=== PATIENT | male | born 1950 | race Caucasian/White ===

== ENCOUNTER 2016-12-06 06:51 | Emergency (ER) | payer MEDICARE, OTHER ==
[~2016-12-06] VITALS: Ht 175.3 cm; Wt 75.0 kg
[2016-12-06 07:06] VITALS: BP 130/91; PULSE 85; RESP 18; TEMP 98.3; O2SAT 97
--- NOTE | 2016-12-06 07:07 | PD ---
HPI Chief Complaint: altered mental status Time Seen by Provider: 06:56 Travel History International Travel<30 days: No Contact w/Intl Traveler<30days: No Traveled to known affect area: No History of Present Illness HPI 66-year-old male was brought in by EMS after patient was found unresponsive. EMS was called by patient's friend. Patient was doing heroin with a friend this morning. Patient was found unresponsive. EMS was called. Patient was given Narcan 0.4 mg IV. Patient workup subsequently. Blood sugar and vital signs stable at the scene. Patient was transported to ED for evaluation. Patient denies any headache. Patient denies any chest pain or shortness of breath. Patient denies abdominal pain. Patient denies any focal weakness or numbness of the extremity. Patient denies any back pain. Patient denies any IV drug abuse. Patient denies any alcohol abuse. Patient denies any medical problem. [facility] Past Medical History Inguinal Hernia: Yes (1955) Social History Alcohol Use: Yes (OCC) Tobacco Use: Yes (PIPE) Substance Use: No Allergies-Medications (Allergen,Severity, Reaction): Coded Allergies: No Known Allergies (Unverified , 12/06/16) Reported Meds & Prescriptions Reported Meds & Active Scripts Active No Active Prescriptions or Reported Medications Review of Systems General / Constitutional: No: Fever Eyes: No: Visual changes HENT: No: Headaches Cardiovascular: No: Chest Pain or Discomfort Respiratory: No: Shortness of Breath Gastrointestinal: No: Abdominal Pain Genitourinary: No: Dysuria Musculoskeletal: No: Pain Skin: No Rash Neurologic: No: Weakness Psychiatric: No: Depression Endocrine: No: Polydipsia Hematologic/Lymphatic: No: Easy Bruising Physical Exam Narrative GENERAL: Well-nourished, well-developed patient. SKIN: Focused skin assessment warm/dry. HEAD: Normocephalic. Patient has ecchymosis and soft tissue swelling forehead. EYES: No scleral icterus. No injection or drainage. Pupils 3 mm equal reactive. NECK: Supple, trachea midline. No JVD or lymphadenopathy. CARDIOVASCULAR: Regular rate and rhythm without murmurs, gallops, or rubs. RESPIRATORY: Breath sounds equal bilaterally. No accessory muscle use. GASTROINTESTINAL: Abdomen soft, non-tender, nondistended. MUSCULOSKELETAL: No cyanosis, or edema. BACK: Nontender without obvious deformity. No CVA tenderness. Patient's awake and alert. Patient moves all extremity well. No obvious focal neurological deficit. Data Data Last Documented VS Vital Signs Date Time Temp Pulse Resp B/P Pulse Ox O2 Delivery O2 Flow Rate FiO2 12/06/16 11:11 73 14 97/61 96 Nasal Cannula 3 12/06/16 07:06 98.3 Orders Electrocardiogram (12/06/16 07:01) Complete Blood Count With Diff (12/06/16 07:01) Comprehensive Metabolic Panel (12/06/16 07:01) Creatine Kinase (Cpk) (12/06/16 07:01) Troponin I (12/06/16 07:01) Prothrombin Time / Inr (Pt) (12/06/16 07:01) Act Partial Throm Time (Ptt) (12/06/16 07:01) Urinalysis - C+S If Indicated (12/06/16 07:01) Chest, Single Ap (12/06/16 07:01) Ct Brain W/O Iv Contrast(Rout) (12/06/16 07:01) Iv Access Insert/Monitor (12/06/16 07:01) Ecg Monitoring (12/06/16 07:01) Oximetry (12/06/16 07:01) Drug Screen, Random Urine (12/06/16 07:01) Alcohol (Ethanol) (12/06/16 07:01) Sodium Chlor 0.9% 1000 Ml Inj (Ns 1000 M (12/06/16 07:15) Labs Laboratory Tests Test 12/06/16 07:49 White Blood Count 30.2 TH/MM3 Red Blood Count 5.16 MIL/MM3 Hemoglobin 15.8 GM/DL Hematocrit 47.8 % Mean Corpuscular Volume 92.6 FL Mean Corpuscular Hemoglobin 30.6 PG Mean Corpuscular Hemoglobin 33.1 % Concent Red Cell Distribution Width 14.5 % Platelet Count 316 TH/MM3 Mean Platelet Volume 9.3 FL Neutrophils (%) (Auto) 88.1 % Lymphocytes (%) (Auto) 5.6 % Monocytes (%) (Auto) 5.4 % Eosinophils (%) (Auto) 0.5 % Basophils (%) (Auto) 0.4 % Neutrophils # (Auto) 26.6 TH/MM3 Lymphocytes # (Auto) 1.7 TH/MM3 Monocytes # (Auto) 1.6 TH/MM3 Eosinophils # (Auto) 0.2 TH/MM3 Basophils # (Auto) 0.1 TH/MM3 CBC Comment AUTO DIFF Differential Total Cells 100 Counted Neutrophils % (Manual) 63 % Band Neutrophils % 12 % Lymphocytes % 11 % Monocytes % 12 % Eosinophils % 1 % Basophils % 1 % Neutrophils # (Manual) 22.7 TH/MM3 Differential Comment FINAL DIFF MANUAL Platelet Estimate NORMAL Platelet Morphology Comment NORMAL Red Cell Morphology Comment NORMAL Prothrombin Time 10.5 SEC Prothromb Time International 1.0 RATIO Ratio Activated Partial 24.4 SEC Thromboplast Time Urine Color LIGHT-YELLOW Urine Turbidity HAZY Urine pH 5.0 Urine Specific [place] 1.004 Urine Protein NEG mg/dL Urine Glucose (UA) NEG mg/dL Urine Ketones NEG mg/dL Urine Occult Blood MOD Urine Nitrite NEG Urine Bilirubin NEG Urine Urobilinogen LESS THAN 2.0 MG/DL Urine Leukocyte Esterase NEG Urine RBC 1 /hpf Urine WBC 1 /hpf Urine Bacteria FEW /hpf Urine Hyaline Casts 1 /lpf Microscopic Urinalysis Comment CULT NOT INDICATED Sodium Level 141 MEQ/L Potassium Level 4.9 MEQ/L Chloride Level 103 MEQ/L Carbon Dioxide Level 21.2 MEQ/L Anion Gap 17 MEQ/L Blood Urea Nitrogen 23 MG/DL Creatinine 1.62 MG/DL Estimat Glomerular Filtration 43 ML/MIN Rate Random Glucose 189 MG/DL Calcium Level 9.4 MG/DL Total Bilirubin 0.2 MG/DL Aspartate Amino Transf 27 U/L (AST/SGOT) Alanine Aminotransferase 38 U/L (ALT/SGPT) Alkaline Phosphatase 95 U/L Total Creatine Kinase 152 U/L Troponin I 0.03 NG/ML Total Protein 8.9 GM/DL Albumin 4.8 GM/DL Urine Opiates Screen NEG Urine Barbiturates Screen NEG Urine Amphetamines Screen NEG Urine Benzodiazepines Screen NEG Urine Cocaine Screen POS Urine Cannabinoids Screen NEG Ethyl Alcohol Level LESS THAN 3 MG/DL MDM Medical Decision Making Medical Screen Exam Complete: Yes Emergency Medical Condition: Yes Interpretation(s) Last Impressions Head CT 12/06/16700 Signed Impressions: Service Date/Time: Tuesday, December 06, 2016 07:54 - CONCLUSION: Normal examination. Tristen Cui Jr., MD Chest X-Ray 12/06/16700 Signed Impressions: Service Date/Time: Tuesday, December 06, 2016 07:34 - CONCLUSION: 1. Hyperinflation suggesting COPD. No acute infiltrate or effusion. Tristen Cui Jr., MD 9:05 AM. CBC WBC 30.2. Hemoglobin 15.8 hematocrit 47.8. 88 neutrophil. BUN 23. Creatinine 1.62. UA is negative. Urine drug screen positive for cocaine. Differential Diagnosis Differential diagnosis including drug overdose, electrolyte imbalance, head injury, TIA, CVA, sepsis. Narrative Course 66-year-old male was brought in with possible heroin overdose. Patient was given Narcan IV with good result. Normal saline solution 1 25 cc an hour. 1: 55 PM. Patient woke up and does not remember anything about the event this morning. Patient states that he did not take any drugs. Diagnosis Primary Impression: Drug-induced mood disorder Additional Impression: Renal insufficiency Patient Instructions: General Instructions Additional Instructions: Follow-up with local physician. Return as needed. Med/Other Pt SpecificInfo: No Meds Exist/No RX given Scripts No Active Prescriptions or Reported Meds Disposition: 01 DISCHARGE HOME Condition: Stable Matthew Alexandra MD Dec 06, 2016 07:07 Matthew Alexandra MD Dec 06, 2016 07:07
[2016-12-06] MEDS ORDERED: SODIUM CHLOR 0.9% 1000 ML INJ 1,000 ML IV SCH (07:15)
[2016-12-06 07:54] VITALS: O2SAT 90; O2SAT 98
[2016-12-06 08:13] LABS: AUTOMATED NEUTROPHIL # 26.6 TH/MM3 (1.8-7.7); BASOPHIL # 0.1 TH/MM3 (0-0.2); BASOPHIL % 0.4 % (0.0-2.0); EOSINOPHIL # 0.2 TH/MM3 (0-0.4); EOSINOPHIL % 0.5 % (0.0-4.0); HEMATOCRIT 47.8 % (39.0-51.0); LYMPH % 5.6 % (9.0-44.0); LYMPHOCYTE # 1.7 TH/MM3 (1.0-4.8); MEAN CELL VOLUME 92.6 FL (80.0-100.0); MEAN CORPUSCULAR HEMOGLOBIN 30.6 PG (27.0-34.0); MEAN CORPUSCULAR HGB CONC 33.1 % (32.0-36.0); MONO % 5.4 % (0.0-8.0); NEUT % 88.1 % (16.0-70.0); PLATELET COUNT 316 TH/MM3 (150-450); RED BLOOD COUNT 5.16 MIL/MM3 (4.50-5.90); RED CELL DISTRIBUTION WIDTH 14.5 % (11.6-17.2); WHITE BLOOD COUNT 30.2 TH/MM3 (4.0-11.0)
--- NOTE | 2016-12-06 08:14 | RADRPT ---
EXAM DATE/TIME: 12/06/2016 07:34 [facility] COMPARISON: No previous studies available for comparison. INDICATIONS : Patient is short of breath. MEDICAL HISTORY : None. SURGICAL HISTORY : None. ENCOUNTER: Initial ACUITY: 1 day PAIN SCORE: 0/10 LOCATION: Bilateral chest FINDINGS: A single view of the chest demonstrates the lungs to be symmetrically aerated without evidence of mas s, infiltrate or effusion. The lungs are hyperinflated bilaterally. The cardiomediastinal contours ar e unremarkable. Osseous structures are intact. CONCLUSION: 1. Hyperinflation suggesting COPD. No acute infiltrate or effusion. Tristen Cui Jr., MD on December 06, 2016 at 8:12 Board Certified Radiologist. This report was verified electronically.
[2016-12-06 08:16] LABS: HEMO FLAGS AUTO DIFF
--- NOTE | 2016-12-06 08:19 | RADRPT ---
EXAM DATE/TIME: 12/06/2016 07:54 [facility] COMPARISON: No previous studies available for comparison. INDICATIONS : Drug overdose , lump on head left side of head. RADIATION DOSE: 32.23 CTDIvol (mGy) MEDICAL HISTORY : None SURGICAL HISTORY : None. ENCOUNTER: Initial ACUITY: 1 day PAIN SCALE: 5/10 LOCATION: cranial TECHNIQUE: Multiple contiguous axial images were obtained of the head. Using automated exposure control and adj ustment of the mA and/or kV according to patient size, radiation dose was kept as low as reasonably a chievable to obtain optimal diagnostic quality images. FINDINGS: CEREBRUM: The ventricles are normal for age. No evidence of midline shift, mass lesion, hemorrhage or acute in farction. No extra-axial fluid collections are seen. POSTERIOR FOSSA: The cerebellum and brainstem are intact. The 4th ventricle is midline. The cerebellopontine angle i s unremarkable. EXTRACRANIAL: The visualized portion of the orbits is intact. SKULL: The calvaria is intact. No evidence of skull fracture. CONCLUSION: Normal examination. Tristen Cui Jr., MD on December 06, 2016 at 8:16 Board Certified Radiologist. This report was verified electronically.
[2016-12-06 08:22] LABS: BACTERIA, URINE FEW /hpf; BLOOD, URINE MOD (NEG); COMMENT (UR) CULT NOT INDICATED; CULTURE IF INDICATED CULT NOT INDICATED; GLUCOSE,URINE NEG (NEG); HYALINE CAST, URINE 1 /lpf (RARE); KETONE, URINE NEG (NEG); NITRITE,URINE NEG (NEG); URINE COLOR LIGHT-YELLOW (YELLW/STRAW)
[2016-12-06 08:24] LABS: AMPHETAMINE, URINE NEG (NEG); BARBITURATES, URINE NEG (NEG); COCAINE, URINE POS (NEG)
[2016-12-06 08:35] LABS: ANION GAP 17 MEQ/L (5-15); APTT (PATIENT) 24.4 SEC (24.3-30.1); AST (GOT) 27 U/L (15-37); BICARBONATE 21.2 MEQ/L (21.0-32.0); BLOOD UREA NITROGEN 23 MG/DL (7-18); CHLORIDE 103 MEQ/L (98-107); GLOMERULAR FILTRATION RATE 43 ML/MIN (>89); POTASSIUM 4.9 MEQ/L (3.5-5.1); PROTHROMBIN TIME - PATIENT 10.5 SEC (9.8-11.6); SODIUM (NA) 141 MEQ/L (136-145)
[2016-12-06 08:40] LABS: ALKALINE PHOSPHATASE 95 U/L (45-117); ALT (GPT) 38 U/L (12-78); CREATINE KINASE 152 U/L (39-308); TOTAL BILIRUBIN ADULT 0.2 MG/DL (0.2-1.0)
[2016-12-06 08:41] VITALS: RESP 16; O2SAT 94
[2016-12-06 08:43] LABS: BANDS 12 % (0-6); BASOPHILS 1 % (0-2); EOSINOPHILS 1 % (0-4); NEUTROPHIL # MANUAL DIFF 22.7 TH/MM3 (1.8-7.7); PLATELET ESTIMATE SMEAR NORMAL (NORMAL); PLATELET MORPHOLOGY NORMAL (NORMAL); POLYS (SEG NEUTROPHILS) 63 % (16-70); SCAN/DIFF FINAL DIFF MANUAL; WBC DIFF SAMPLE 100
[2016-12-06 11:11] VITALS: BP 97/61; PULSE 73; RESP 14; O2SAT 96
[2016-12-06 14:07] VITALS: BP 117/68; PULSE 80; RESP 18; O2SAT 94
[2016-12-06 15:23] VITALS: BP 124/69
--- NOTE | 2016-12-06 19:59 | EKG ---
Date Performed: 12/06/2016 Time Performed: 08:32:11 PTAGE: 66 years EKG: Sinus rhythm WITH OCCASIONAL VENTRICULAR PREMATURE COMPLEXES POSSIBLE RIGHT VENTRICULAR CONDUCTION DELAY BORDERLI NE ECG NO PREVIOUS TRACING DOCTOR: Logan Miller Interpretating Date/Time 12/06/2016 19:57:48
== END 2016-12-06 15:23 | disposition home or self-care (01) ==
LOC: NEPE 06:51
DX: F19.94 Other psychoactive substance use, unspecified with psychoactive substance-induced mood disorder (principal); N28.9 Disorder of kidney and ureter, unspecified
CPT/HCPCS: 70450; 71010; 80053; 80307; 81001; 82550; 84484; 85007; 85027; 85610; 85730; 93005; 99285; J7030